=== PATIENT | male | born 1940 | race Caucasian/White ===

== ENCOUNTER 2020-08-17 16:37 | Emergency (ER) | payer OTHER, MEDICARE ==
[~2020-08-17] VITALS: Ht 177.8 cm; Wt 81.7 kg
[~2020-08-17 16:37] MED LIST: DIPASPER PO; LISI5 PO; LOVA40 PO; METCAR750 PO; MULVITMIND PO; NITR.4SL SL; Norco 5-325 Ta1 EACH PO; OMEP20ER PO; Percocet 5-3251 EACH PO
[2020-08-17 17:00] LABS: Calcium, Ionized (POC) 1.14 mmol/L (1.10-1.46); Chloride (POC) 103 mmol/L (98-108); Glucose (ISTAT POC) 106 mg/dL (70-99); Potassium (POC) 4.2 mmol/L (3.5-5.5); Sodium (POC) 140 mmol/L (135-148); Total CO2 (POC) 26 mmol/L (21-32)
[2020-08-17 17:04] LABS: BASOPHILS ABSOLUTE AUTO 0.04 K/mm3 (0.00-0.23); BASOPHILS PERCENT AUTO 0 % (0-2); EOSINOPHILS PERCENT AUTO 2 % (0-6); Hematocrit 47.5 % (37.0-53.0); Hemoglobin 15.2 g/dL (13.5-17.5); IMMATURE GRAN ABSOLUTE AUTO 0.05 K/mm3 (0.00-0.10); IMMATURE GRAN PERCENT AUTO 0 % (0-1); LYMPHOCYTES ABSOLUTE AUTO 5.73 K/mm3 (0.84-5.20); LYMPHOCYTES PERCENT AUTO 45 % (21-46); MONOCYTES ABSOLUTE AUTO 1.05 K/mm3 (0.16-1.47); MONOCYTES PERCENT AUTO 8 % (4-13); Mean Corpuscular Volume 97 fL (80-100); Mean Platelet Volume 9.5 fL (9.1-12.4); NEUTROPHILS ABSOLUTE AUTO 5.65 K/mm3 (1.96-9.15); NEUTROPHILS PERCENT AUTO 44 % (41-73); Platelet Count 235 K/mm3 (150-400); RDW Coefficient Variation 12.6 % (11.7-14.2); RDW Standard Deviation 45.1 fL (35.1-46.3); Red Blood Cell Count 4.91 M/mm3 (4.30-5.90); White Blood Cell Count 12.72 K/mm3 (4.00-11.30)
[2020-08-17 17:18] LABS: Prothrombin Time Results 10.7 Sec (9.7-11.5)
[2020-08-17 17:28] LABS: PCO2 Arterial 54.8 mmHg (35-45); PO2 Arterial 56.3 mmHg (80-100)
[2020-08-17 17:28] LABS: Alanine Aminotransfer (ALT/SGP 19 U/L (12-78); Albumin, Blood 4.2 g/dL (3.4-5.0); Albumin/Globulin Ratio 1.2 (0.8-1.8); Alk Phos 91 U/L (50-136); Anion Gap 8 mmol/L (6-16); Aspartate Aminotrans (AST/SGOT 23 U/L (12-37); Bilirubin, Total 0.6 mg/dL (0.1-1.0); Blood Urea Nitrogen 11 mg/dL (8-24); Bun/Creatinine Ratio 12.4 (12.0-20.0); CO2, Blood 24 mmol/L (21-32); Calcium, Blood 8.9 mg/dL (8.5-10.1); Chloride, Blood 108 mmol/L (98-108); Creatinine, Blood 0.88 mg/dL (0.60-1.20); Ethanol (Alcohol), Blood, Med <3 mg/dL; Globulin, Blood 3.4 g/dL (2.2-4.0); Glomerular Filtration Rate >60 (60-); Glucose, Blood 103 mg/dL (70-99); Potassium, Blood 4.2 mmol/L (3.5-5.5); Sodium, Blood 140 mmol/L (136-145); Total Protein, Blood 7.6 g/dL (6.4-8.2)
[2020-08-17 17:29] LABS: pH Blood Arterial 7.28 (7.35-7.45)
[2020-08-17] MEDS ORDERED: OMEP20ER PO (17:32)
[2020-08-17] MEDS ORDERED: DAILY-VITE1 EACH PO (17:32)
[2020-08-17] MEDS ORDERED: Aspirin EC81 MG PO (17:32)
[2020-08-17] MEDS ORDERED: Lisinopril2.5 MG PO (17:32)
[2020-08-17] MEDS ORDERED: ACET500 PO (17:33)
[2020-08-17] MEDS ORDERED: MAGNESIUM OXID500 MG PO (17:33)
--- NOTE | 2020-08-17 17:50 | NUR ---
ED Palliative Care Consult Spoke with Dr Mckeon and discussed case. Pt may have had a significant stroke and is currently intubated. Dr Mckeon, ED Company Driver Stacey, and this RN met with Pt's daughter Eliz in ED Consult Room. Dr Mckeon discusses Pt condition and the possibility of CVA. Goals of care discussed including options for potential treatment pending stroke team consultation. Randall Wellington is requesting to treat if possible and family will revisist goals of care in a couple of days. Eliz does report Pt would not want CPR performed if his heart stops. Eliz reports Pt wishes would be DNR but would like to keep him intubated until further information and options for plan of care develop. Relayed Pt's wishes to Dr Mckeon. Pt resting on gurney and is intubated. No S/S of distress at this time. ED senior planner Stacey brings randall Wellington into Pt's room. Palliative Care will remain available.
[2020-08-17 18:55] LABS: Influenza A, PCR Negative (NEGATIVE); Influenza B, PCR Negative (NEGATIVE); Resp Syncytial Virus, PCR Negative (NEGATIVE); SARS-Cov-2 (COVID-19) PCR, MMC Negative (NEGATIVE)
== END 2020-08-17 19:33 | disposition short-term general hospital (02) ==
LOC: ER 16:37
PROVIDERS: Emergency Medicine
DX: I63.232 Cerebral infarction due to unspecified occlusion or stenosis of left carotid arteries (principal); I25.10 Atherosclerotic heart disease of native coronary artery without angina pectoris; I10 Essential (primary) hypertension; I25.2 Old myocardial infarction; E78.00 Pure hypercholesterolemia, unspecified; F17.210 Nicotine dependence, cigarettes, uncomplicated; Z20.822 Contact with and (suspected) exposure to COVID-19; Z95.5 Presence of coronary angioplasty implant and graft; Z79.82 Long term (current) use of aspirin; Z88.0 Allergy status to penicillin; Z79.899 Other long term (current) drug therapy
CPT/HCPCS: 0241U; 31500; 31720; 36600; 51702; 70450; 70496; 70498; 71045; 72125; 80047; 80053; 82550; 82803; 84484; 85014; 85025; 85610; 85730; 93005; 93010; 94002; 96374-59; 96375-59; 99291-25; G0480; J1940; J2704; J3010; Q9967